=== PATIENT | male | born 1945 | race Two or more races ===

== ENCOUNTER 2018-05-10 21:37 | Emergency (ER) | payer SELFPAY ==
[~2018-05-10] VITALS: Ht 162.6 cm; Wt 68.0 kg
[~2018-05-10 21:37] MED LIST: NKM
[2018-05-10 21:45] VITALS: BP 131/82
--- NOTE | 2018-05-10 21:48 | Emergency Room Report ---
History of Present Illness General Chief Complaint: Alcohol Intoxication Source: Medical Record, EMS Present Illness HPI This is a 72-year-old male who is homeless. Brought in by EMS for alcohol intoxication. He was literally sleeping on the street and 911 was called. Police took him to the sidewalk but he was too intoxicated to walk. He has a history of alcohol abuse. Unable to get any other history from this patient. There was no trauma. History is through EMS and previous ER visit. Allergies: Coded Allergies: No Known Allergies (Verified , 12/26/08) Patient History Past Medical History: see triage record, old chart reviewed Past Surgical History: other Pertinent Family History: none Social History: Reports: alcohol use; Denies: smoking Immunizations: other Reviewed Nursing Documentation: PMH: Agreed; PSxH: Agreed Nursing Documentation-PMH Hx Hypertension: Yes Hx Seizures: Yes Review of Systems All Other Systems: limited - Secondary to Intoxication Physical Exam Vital Signs Date Time Temp Pulse Resp B/P (MAP) Pulse Ox O2 Delivery O2 Flow Rate FiO2 05/10/18 21:35 98.3 88 16 131/82 93 Room Air 98.2 vitals normal Sp02 EP Interpretation: reviewed, normal General Appearance: well appearing, no apparent distress, other - Intoxicated Head: normocephalic, atraumatic Eyes: bilateral eye PERRL, bilateral eye EOMI ENT: hearing grossly normal, normal pharynx Neck: full range of motion, supple, no meningismus Respiratory: chest non-tender, lungs clear, normal breath sounds Cardiovascular #1: regular rate, rhythm, no murmur Gastrointestinal: normal bowel sounds, non tender, no mass, no organomegaly, no bruit, non-distended Musculoskeletal: back normal, normal range of motion Neurologic: alert, oriented x3 Psychiatric: mood/affect normal Skin: warm/dry Medical Decision Making Diagnostic Impression: Primary Impression: Alcohol intoxication Qualified Codes: F10.920 - Alcohol use, unspecified with intoxication, uncomplicated ER Course Patient with alcohol intoxication. No trauma to warrant CT scan or x-ray. We' ll observe until clinical sobriety. Discharge afterward. Last Vital Signs Date Time Temp Pulse Resp B/P (MAP) Pulse Ox O2 Delivery O2 Flow Rate FiO2 05/10/18 21:35 98.3 88 16 131/82 93 Room Air 98.2 Status: improved Disposition: HOME, SELF-CARE Condition: Stable Patient Instructions: Alcohol Intoxication, [id number] GASPER MEYERS M.D. May 10, 2018 21:48
[2018-05-11 01:22] VITALS: BP 121/70
[2018-05-11 04:56] VITALS: BP 133/81
[2018-05-11 05:25] VITALS: BP 133/81
== END 2018-05-11 05:27 | disposition home or self-care (01) ==
LOC: EDBD 21:37 → EMR 22:14
DX: F10.929 Alcohol use, unspecified with intoxication, unspecified (principal)
CPT/HCPCS: 82962; 99282